=== PATIENT | male | born 1965 | race Caucasian/White ===

== ENCOUNTER → 2020-01-10 08:06 | Outpatient (CLI) | payer BC, OTHER, SELFPAY ==
--- NOTE | 2020-01-10 | DI.US.S_ITS ---
PROCEDURE: US ABDOMEN COMPLETE INDICATIONS: Gastro-esophageal reflux disease TECHNIQUE: Real-time scanning was performed of the abdominal and retroperitoneal organs, with image documentation. COMPARISON: None. FINDINGS: Liver: Liver is diffusely increased in echogenicity. No focal hepatic abnormalities identified. Normal hepatic size. Gallbladder: Cholecystectomy. Biliary ducts: Intrahepatic bile ducts are non-dilated. Extrahepatic bile duct caliber measures 2.5 mm. Normal is 6-7 mm or less in diameter, or 10 mm or less post-cholecystectomy. Pancreas: Not well visualized. Spleen: Spleen is normal in size and homogeneous in echotexture. Kidneys: Kidneys are normal in size and echotexture. Right kidney measures 10.8 cm long; left kidney measures 12.0 cm long. No hydronephrosis or nephrolithiasis. No solid masses. Aorta: Visualized aorta is normal in caliber at less than 3 cm. Iliacs: Proximal common iliac arteries are normal in caliber at less than 2.5 cm. IVC: Intrahepatic inferior vena cava is patent. Miscellaneous: No free abdominal fluid. IMPRESSION: 1. Increased hepatic echogenicity noted possibly related to hepatic steatosis but other sources of hepatocellular disease cannot be excluded. Recommend clinical correlation. Dictated by: Regan GRAY Interpreted: Alena Ghosh MD on 01/10/2020 at 9:27 Approved by: Alena Ghosh M.D. on 01/10/2020 at 11:42
== END ==
PROVIDERS: Family Provider Family Medicine; PCP Family Medicine; Referring Provider Family Medicine; Visit Provider Family Medicine
DX: K21.9 Gastro-esophageal reflux disease without esophagitis (principal)
CPT/HCPCS: 76700

== ENCOUNTER → 2020-02-29 09:15 | Outpatient (CLI) | payer BC, OTHER, SELFPAY ==
[2020-02-29 11:17] LABS: COVID19 -Nasal RAPID Negative (Negative)
== END ==
PROVIDERS: Family Provider Family Medicine; PCP Family Medicine; Visit Provider Surgery
DX: Z01.812 Encounter for preprocedural laboratory examination (principal); Z20.822 Contact with and (suspected) exposure to COVID-19
CPT/HCPCS: 87635; C9803

== ENCOUNTER 2020-03-01 06:55 | Day surgery (SDC) | payer BC, OTHER, SELFPAY ==
[2020-03-01] VITALS (8 sets, daily range): BP systolic 106–126; BP diastolic 72–90; PULSE 71–83; RESP 10–20; TEMP 36.3–37.3; O2SAT 92–97; BMI 29.7
--- NOTE | 2020-03-01 | PATH_ITS ---
[facility] Accession Number: [id number] . 01 Material submitted: . PART A: duodenum - DUODENAL BIOPSIES PART B: gastrointestinal site - STOMACH BIOPSIES PART C: esophagus - ESOPHAGEAL BIOPSIES . 02 Diagnosis: A. Duodenum, Biopsies: Duodenal mucosa with villous blunting, reactive epithelial changes, and gastric surface foveolar metaplasia, most consistent with peptic duodenitis. Negative for intraepithelial lymphocytosis. Negative for dysplasia and malignancy. . B. Stomach, Biopsies: Body-type mucosa with mild chronic gastritis. Negative for Helicobacter organisms by immunohistochemistry. Negative for intestinal metaplasia. Negative for dysplasia and malignancy. . C. Esophagus, Biopsies: Squamous and columnar mucosa with no diagnostic abnormality. Negative for intestinal metaplasia. Negative for dysplasia and malignancy. [facility] 03/07/2020 1510 Local . 02 Electronically signed: . Carey More MD, Pathologist NPI- [id number] . 01 Gross description: . Part A: DUODENAL BIOPSIES: Received in formalin are 2 fragment(s) of bower, soft tissue measuring 0.1 x 0.1 x 0.1 cm to 0.2 x 0.1 x 0.1 cm submitted entirely in 1 cassette(s) Part B: STOMACH BIOPSIES: Received in formalin are multiple fragment(s) of bower, soft tissue measuring 0.1 x 0.1 x 0.1 cm to 0.2 x 0.2 x 0.2 cm submitted entirely in 1 cassette(s) Part C: ESOPHAGEAL BIOPSIES: Received in formalin are 2 fragment(s) of bower, soft tissue measuring 0.1 x 0.1 x 0.1 cm to 0.2 x 0.2 x 0.1 cm submitted entirely in 1 cassette(s) /JESSE 03/04/2020 1909 Local . 02 Microscopic: . B. An immunohistochemical stain was performed to evaluate for Helicobacter organisms and is negative. The control stain showed appropriate reactivity. . * This test was developed and its performance characteristics determined by [facility]. It has not been cleared or approved by the U.S. Food and Drug Administration. The FDA has determined that such clearance or approval is not necessary. This test is used for clinical purposes. It should not be regarded as investigational or for research. . 02 Pathologist provided ICD-10: K62.5 . 02 CPT . 335171, 062516, 879742, [id number] Performed at: 01 [facility] [address] [facility] [place] [place], [place], [place] [id number] MD Lyle Birmingham MD Phone: [phone] Performed at: 02 [facility] [address] [place], [place] [id number] MD Carey More MD Phone: [phone]
[2020-03-01] MEDS: SODIUM CHLORIDE 0.9% 1,000 ML 200 ML IV (07:11)
--- NOTE | 2020-03-01 07:30 | P.HP_ITS ---
History of Present Illness History of Present Illness Date Patient Seen: 03/01/20 Time Patient Seen: 07:31 Chief complaint: SDC Narrative: This is a 54 yo man with history of GERD, colon polyps, and cholecystectomy. He has low-grade obesity with a BMI of 31.8. He came to see me last month with c/o heme positive stool and abdominal pain. He has had an unexplained right sided abdominal pain which seems to come on randomly in the right mid abdomen and flank. It does not seem to be associated with eating, activity, or bowel movements. He denies constipation, diarrhea, BRBPR, rectal pain, or hemorrhoids. He denies nausea, vomiting, fevers, or jaundice. He does have heartburn symptoms at night about once per week. He denies unexplained abdominal pain or unexplained weight loss. He had a colonoscopy about five years ago during which precancerous polyps were removed. He recently had an abdominal ultrasound which showed fatty liver and no other noted abnormalities. The patient reports no interval changes since his visit in January. ROS: Positive for skin lesions. Thirteen system review is otherwise negative other than as mentioned below and in HPI. PE: GENERAL: Well groomed and cooperative. Appears stated age. Answers questions promptly and appropriately. Vital signs noted. HENT: Normocephalic, atraumatic. Hearing intact. EYES: Conjunctiva pink, sclera white, no periorbital swelling. CARDIOVASCULAR: Regular rate. No pedal edema. RESPIRATORY: Non-tachypneic, breathing comfortably on room air. GASTROINTESTINAL: Abdomen soft and non-distended MUSCULOSKELETAL: Equal tone and mass bilaterally. SKIN: Warm, dry, soft, appropriate color for ethnicity. No other lesions, rashes, or wounds. NEURO: Alert and Oriented X 3. No gross sensory deficits, or cognitive issues. PSYCH: Appropriate affect and mood. Patient History Medical History Femur fracture, left Surgical History Hx of cholecystectomy Hx of knee surgery Family & Social History Family History Father Esophageal cancer Sister Breast cancer Grandfather Heart disease Social History: household members spouse,children Tobacco & Substance use: Smoking Status Never smoker alcohol intake current alcohol intake frequency holiday/special occasion Substance Use Type does not use Meds Home Medications and Allergies Home Medications Medication Instructions Recorded Confirmed Type No Known Home Medications 01/23/20 03/01/20 History Allergies Allergy/AdvReac Type Severity Reaction Status Date / Time No Known Drug Allergies Allergy Verified 03/01/20 07:10 Exam Vital Signs (past 8 hours): - 03/01/20 07:11 Temperature 97.4 F L Pulse Rate 74 Respiratory Rate 16 Blood Pressure 126/90 Pulse Oximetry 96 Oxygen Delivery Method Room Air Objective Imaging US - abdomen: Radiologist's impression: PROCEDURE: US ABDOMEN COMPLETE INDICATIONS: Gastro-esophageal reflux disease TECHNIQUE: Real-time scanning was performed of the abdominal and retroperitoneal organs, with image documentation. COMPARISON: None. FINDINGS: Liver: Liver is diffusely increased in echogenicity. No focal hepatic abnormalities identified. Normal hepatic size. Gallbladder: Cholecystectomy. Biliary ducts: Intrahepatic bile ducts are non-dilated. Extrahepatic bile duct caliber measures 2.5 mm. Normal is 6-7 mm or less in diameter, or 10 mm or less post-cholecystectomy. Pancreas: Not well visualized. Spleen: Spleen is normal in size and homogeneous in echotexture. Kidneys: Kidneys are normal in size and echotexture. Right kidney measures 10.8 cm long; left kidney measures 12.0 cm long. No hydronephrosis or nephrolithiasis. No solid masses. Aorta: Visualized aorta is normal in caliber at less than 3 cm. Iliacs: Proximal common iliac arteries are normal in caliber at less than 2.5 cm. IVC: Intrahepatic inferior vena cava is patent. Miscellaneous: No free abdominal fluid. IMPRESSION: 1. Increased hepatic echogenicity noted possibly related to hepatic steatosis but other sources of hepatocellular disease cannot be excluded. Recommend clinical correlation. Dictated by: Regan Guzmán [facility] Interpreted: Alena Ghosh MD on 01/10/2020 at 9:27 Approved by: Alena Ghosh M.D. on 01/10/2020 at 11:42 Assessment & Plan Assessment and plan (1) Heme positive stool: Status: Acute (2) Abdominal pain: Qualifiers: Abdominal location: right upper quadrant Qualified Code(s): R10.11 - Right upper quadrant pain Status: Acute (3) History of colon polyps: Status: Acute (4) GERD (gastroesophageal reflux disease): Qualifiers: Esophagitis presence: esophagitis presence not specified Qualified Code(s): K21.9 - Gastro-esophageal reflux disease without esophagitis Status: Acute Assessment & Plan narrative: 23 minutes were spent reviewing the patient's records and imaging studies, and 12 minutes were spent discussing the patient's history, any recent changes, and today's procedure. Risks and benefits of screening colonoscopy and possible polypectomy, as well as EGD and biopsy were discussed with the patient including risk of bleeding, perforation, need for additional procedures, risks of anesthesia. The patient desires to proceed with the colonoscopy and upper endoscopy procedures. COVID-19 COVID-19 status: Negative Result date/Date tested (Pos, Neg/Pending): 02/29/20 Time Spent With Patient Time with patient: 25 - 35 minutes Quality VTE Deep Vein Thrombosis/Pulmonary Embolism Present on Admission: No
[2020-03-01] MEDS: fentaNYL 250 MCG/5 ML INJ IV (07:37)
[2020-03-01] MEDS: MIDAZOLAM 5 MG/5 ML VIAL IV (07:38)
[2020-03-01] MEDS: LIDOCAINE 4% SOLN 50 ML 20 ML TOP (07:39)
--- NOTE | 2020-03-01 07:39 | PM.OP.ENDO ---
Operative Date/Time/Diagnoses Date of procedure: 03/01/20 Time of procedure: 07:39 Pre-op diagnosis: Heme positive stool, right sided abdominal pain, history of GERD and colon polyps Post-op diagnosis: other (copious bile in the stomach, shallow ulcers induodenal bulb) Procedure & Clinicians Study performed: Colonoscopy Procedural sedation performed by the endoscopist Esophagogastroduodenoscopies Biopsies of duodenum, stomach, distal esophagus Same procedure as scheduled: Yes Indications: Heme-positive stool, right abdominal pain Surgeon: Elizabeth Tolentino Procedure Notes SCOAP/Timeout: Performed Procedure in detail: The patient was brought to the room and placed in left lateral decubitus position with all bony prominences padded. A bite block was positioned in the patient's mouth to protect the lips, teeth, and tongue for the procedure. A time-out was performed and then the patient was given procedural sedation starting with [4] mg of Versed and [100] mcg of fentanyl. Vitals were monitored throughout the procedure and remained stable. Once adequately sedated, the procedure was begun. The lubricated gastroscope was passed through the bite block and across the tongue and into the esophagus without incident. A tubular view of the esophagus was maintained as the scope was advanced through the esophagus and into the stomach. There was copious bilious fluid in the stomach. The there was some mild in discuss gastritis, but no ulcers in the stomach, and the stomach otherwise appeared normal. The scope was advanced through the stomach and to the pylorus. The scope was gently popped through the pylorus and into the duodenal bulb. The scope was flexed and advanced into the second and third portions of the duodenum. There was prominent inflammation in the duodenal bulb, with some shallow nonbleeding ulcers. Biopsies were taken. The scope was withdrawn into the stomach. Biopsies were taken in the gastric antrum and gastric body. The scope was retroflexed and the gastric cardia was examined. The hiatus [appeared normal]. There was no evidence of a hiatal hernia or any ulcerations at the GE junction. The scope was then straightened, and withdrawn into the esophagus. The Z-line [appeared normal]. The distal esophagus [appeared normal]. Biopsies were taken. The scope was then withdrawn through the esophagus with a tubular view. The bite block was then removed, and attention was turned to the colonoscopy portion of the procedure. A rectal exam was performed revealing [no abnormalities]. The colonoscope was then introduced to the rectum and advanced to the cecum in the usual fashion. []The cecum was identified by the appendiceal orifice, the mucosal tri-fold, and the ileocecal valve. The scope was then retracted while rotating side to side and examining each mucosal fold. [] At the conclusion of the procedure retroflexion was performed and [small grade 1-2 internal hemorrhoids without stigmata of bleeding were seen]. No polyps or other abnormalities were seen on the colonoscopy portion of the procedure. The scope was then withdrawn from the rectum the procedure was concluded. The patient tolerated the procedure well and was transferred to the PACU in stable condition. Scope withdrawal time: 8 Sedation minutes: 31 Findings: duodenal ulcer and gastritis Specimen(s): other (Biopsies of duodenum, stomach, distal esophagus) Complications: none Impression: Normal appearing colon. Normal-appearing esophagus, no hiatal hernia, mild gastritis, copious Bilious fluid in the stomach, shallow Ulcers in the duodenal bulb without visible vessels or active bleeding, 2nd portion of the duodenum appeared normal. Likely source of heme-positive stool is the ulceration of the duodenal bulb. No other cause of right side abdominal pain was identified. Post-procedure Recommendations: Other recommendation (Pending biopsy results to rule out H pylori. Patient may need to start on a PPI or be treated for H pylori if biopsies are positive.) Follow up: as needed Disposition: PACU
== END 2020-03-01 09:03 | disposition home or self-care (01) ==
PROVIDERS: Family Provider Family Medicine; PCP Family Medicine; Referring Provider Family Medicine; Visit Provider Surgery
PROC: 0DJD8ZZ Inspection of Lower Intestinal Tract, Via Natural or Artificial Opening Endoscopic (ICD-10-PCS; CPT 45378; 2020-03-01 07:45)
PROC: 0DJ08ZZ Inspection of Upper Intestinal Tract, Via Natural or Artificial Opening Endoscopic (ICD-10-PCS; CPT 43235; 2020-03-01 07:45)
DX: K29.50 Unspecified chronic gastritis without bleeding (principal); K21.9 Gastro-esophageal reflux disease without esophagitis; R19.5 Other fecal abnormalities; Z86.010 Personal history of colon polyps; K26.9 Duodenal ulcer, unspecified as acute or chronic, without hemorrhage or perforation; K64.0 First degree hemorrhoids
CPT/HCPCS: 43239; 45378; 99152; 99153; J2250; J3010

== ENCOUNTER → 2021-02-26 09:33 | Outpatient (CLI) | payer BC, OTHER, SELFPAY ==
[2021-02-26 10:08] LABS: COVID19 -Nasal RAPID Negative (Negative)
== END ==
PROVIDERS: Family Provider Family Medicine; PCP Family Medicine; Visit Provider Surgery
DX: Z01.812 Encounter for preprocedural laboratory examination (principal); Z20.822 Contact with and (suspected) exposure to COVID-19
CPT/HCPCS: 87635; C9803

== ENCOUNTER 2021-02-27 13:32 | Day surgery (SDC) | payer BC, OTHER, SELFPAY ==
--- NOTE | 2021-02-27 | PATH_ITS ---
[facility] Accession Number: [id number] . 01 Material submitted: . duodenum - DUODENAL . 02 Diagnosis: Duodenal: Duodenal mucosa with focal, mild active inflammation, non-specific. Negative for regions of dysplasia or malignancy. Negative for features of sprue. [facility] 03/03/2021 1102 Local . 02 Electronically signed: . Guerda Chu MD, Pathologist NPI- [id number] . 01 Gross description: . DUODENAL: Received in formalin are 2 fragment(s) of bower, soft tissue measuring 0.1 x 0.1 x 0.1 cm to 0.3 x 0.1 x 0.1 cm submitted entirely in 1 cassette(s) /JESSE 02/28/2021 0151 Local . 02 Pathologist provided ICD-10: K26.9 . 02 CPT . 495462 Performed at: 01 [facility] [address] [facility], [place], [place] [id number] MD Lyle Birmingham MD Phone: [phone] Performed at: 02 [facility] [address] [place], [place] [id number] MD Carey More MD Phone: [phone]
[2021-02-27 13:53] VITALS: BP 144/94; PULSE 78; RESP 16; O2SAT 97; BMI 31.4
[2021-02-27] MEDS: LACTATED RINGERS 1,000 ML 200 ML IV (14:03)
--- NOTE | 2021-02-27 14:34 | PM.PREOP ---
Pre-operative Note Interval Note History & Physical reviewed/Exam performed by Physician: Yes Changes to H&P: No
[2021-02-27] MEDS: LIDOCAINE 4% SOLN 50 ML 20 ML TOP (14:40)
[2021-02-27] MEDS: MIDAZOLAM 5 MG/5 ML VIAL IV (14:44)
[2021-02-27] MEDS: fentaNYL 250 MCG/5 ML INJ IV (14:45)
--- NOTE | 2021-02-27 14:57 | PM.OP.EGD ---
Operative Date/Time/Diagnoses Date of procedure: 02/27/21 Time of procedure: 14:57 Pre-op diagnosis: Abdominal pain Post-op diagnosis: same Procedure & Clinicians Study performed: Esophagoduodenoscopy Same procedure as scheduled: Yes Indications: History of duodenal ulcers and reflux with worsening GERD and abdominal pain Surgeon: Desmond Jefferson Procedure Notes Procedure in detail: Patient placed in left lateral decubitus position. Time out was performed. Procedural sedation was administered with Versed and Fentanyl. A bite block was placed. the scope was inserted into the mouth and advanced through the esophagus and into the stomach. The stomach was normal in its appearance. The pylorus was intubated. The duodenal bulb was notable for mild duodenitis was no active bleeding or distinct ulceration. Biopsies of the duodenal bulb were taken with forceps. The scope was retroflexed within the stomach and there was no hiatal hernia. The scope was withdrawn into the esophagus the Z line was seen at 38 cm from the incisions. There was no Matthews's esophagitis or masses or strictures. Stomach was desufflated and scope removed. Patient tolerated procedure well. Specimen(s): other (Duodenum) Complications: none Impression: Duodenitis Post-procedure Plan for aftercare: Will notify with biopsy results. I would recommend starting famotidine daily Disposition: same day surgery
[2021-02-27 15:10] VITALS: BP 120/88; BP 126/89; PULSE 72; PULSE 76; RESP 16; RESP 18; TEMP 36.7; O2SAT 91; O2SAT 94
[2021-02-27 15:20] VITALS: BP 124/88; PULSE 77; RESP 10; O2SAT 96
[2021-02-27 15:33] VITALS: BP 141/95; PULSE 75; RESP 12; O2SAT 96
== END 2021-02-27 15:56 | disposition home or self-care (01) ==
PROVIDERS: Family Provider Family Medicine; PCP Family Medicine; Referring Provider Surgery; Visit Provider Surgery
PROC: 0DJ08ZZ Inspection of Upper Intestinal Tract, Via Natural or Artificial Opening Endoscopic (ICD-10-PCS; CPT 43235; principal; 2021-02-27 14:30)
DX: K29.80 Duodenitis without bleeding (principal); K21.9 Gastro-esophageal reflux disease without esophagitis; Z87.19 Personal history of other diseases of the digestive system
CPT/HCPCS: 43239; J2250; J3010

== ENCOUNTER → 2022-03-17 15:02 | Outpatient (CLI) | payer BC, OTHER, SELFPAY ==
--- NOTE | 2022-03-17 | DI.RAD.S_ITS ---
PROCEDURE: XR KNEE RT 3V INDICATIONS: right knee pain TECHNIQUE: 3 views of the knee were acquired. COMPARISON: CR, KNEE MIN 4VW (RT), 09/29/2011, 13:34. CR, KNEE MIN 4VW (LT), 09/29/2011, 13:34. FINDINGS: Bones: No fractures or dislocations. No suspicious bony lesions. Mild narrowing of the medial femorotibial joints bilaterally. Soft tissues: Small right knee joint effusion. No suspicious soft tissue calcifications. IMPRESSION: Mild narrowing of the medial femorotibial joints bilaterally. Dictated by: Regan Guzmán RR Interpreted: Johnathan Lyons MD on 03/17/2022 at 15:27 Transcribed by: LOWELL on 03/17/2022 at 15:27 Approved by: Johnathan Lyons M.D. on 03/17/2022 at 16:37
== END ==
PROVIDERS: Family Provider Family Medicine; PCP Family Medicine; Referring Provider Family Medicine; Visit Provider Family Medicine
DX: M25.561 Pain in right knee (principal); M25.461 Effusion, right knee
CPT/HCPCS: 73562

== ENCOUNTER → 2022-03-25 15:18 | Outpatient (CLI) | payer BC, OTHER, SELFPAY ==
--- NOTE | 2022-03-25 | DI.US.S_ITS ---
PROCEDURE: US ABDOMEN LIMITED INDICATIONS: Fatty (change of) liver, not elsewhere classified TECHNIQUE: Real-time focused scanning was performed of the abdomen, with image documentation. COMPARISON: [facility], US, US ABDOMEN COMPLETE, 01/10/2020, 8:15. FINDINGS: The liver demonstrates mildly enlarged size. The liver demonstrates generalized moderately increased echogenicity. This decreases ultrasound sensitivity for detection of hepatic masses. Status post cholecystectomy. There is no biliary dilatation, the common bile duct measures 5 mm. The pancreas is partially seen on this study. IMPRESSION: Mildly enlarged, fatty liver. Status post cholecystectomy, without biliary dilatation. Dictated by: David Kelly M.D. on 03/25/2022 at 15:14 Approved by: David Kelly M.D. on 03/25/2022 at 15:15
== END ==
PROVIDERS: Family Provider Family Medicine; PCP Family Medicine; Referring Provider Family Medicine; Visit Provider Family Medicine
DX: K76.0 Fatty (change of) liver, not elsewhere classified (principal); Z90.49 Acquired absence of other specified parts of digestive tract
CPT/HCPCS: 76705

== ENCOUNTER → 2024-12-21 07:11 | Outpatient (CLI) | payer BC, OTHER, SELFPAY ==
--- NOTE | 2024-12-21 07:13 | DI.US.S_ITS ---
PROCEDURE: US RENAL COMPLETE INDICATIONS: stage 3a chronic kidney disease TECHNIQUE: Real-time scanning was performed of the kidneys and bladder, with image documentation. COMPARISON: None. FINDINGS: Kidneys: Kidneys are normal in size. Right kidney measures 12.0 cm long; left kidney measures 11.4 cm long. Right renal cortical thickness is 1.8 cm; left renal cortical thickness is 1.6 cm. Renal cortical echotexture is normal. No hydronephrosis or nephrolithiasis. No suspicious solid mass lesions. Adjacent liver appears increased in echotexture consistent with fatty infiltration. Bladder: Pre-void bladder volume is 399 mL. Post-void residual is 106 mL. Pre-void images demonstrate no intraluminal masses or stones. On pre-void images, bilateral ureteral jets are noted with color Doppler interrogation. (Of note, ureteral jets may not be detectable in up to 25% of cases due to insufficient differences in specific gravity between ureteral and bladder urine). Miscellaneous: No free pelvic fluid. IMPRESSION: Normal renal size, bilaterally. No hydronephrosis or nephrolithiasis. Incidental note is made of increased echotexture in the adjacent liver, relatively prominent when compared to normal echotexture of the right kidney. No ascites or hepatic mass seen in the limited visualization through this area. Significant postvoid residual of 106 cc within the bladder lumen. Dictated by: Felice العراقي M.D. on 12/21/2024 at 9:26 Approved by: Felice العراقي M.D. on 12/21/2024 at 9:29
== END ==
LOC: US 07:12
PROVIDERS: Family Provider Family Medicine; PCP Family Medicine; Referring Provider Family Medicine; Visit Provider Family Medicine
DX: N18.31 Chronic kidney disease, stage 3a (principal)
CPT/HCPCS: 76770

== ENCOUNTER → 2025-02-16 08:33 | Outpatient (CLI) | payer BC, OTHER, SELFPAY ==
--- NOTE | 2025-02-16 08:34 | DI.US.S_ITS ---
PROCEDURE: US ABDOMEN LIMITED INDICATIONS: fatty liver TECHNIQUE: Real-time focused scanning was performed of the abdomen, with image documentation. COMPARISON: [facility], US, US ABDOMEN LIMITED, 03/25/2022, 15:27. FINDINGS: Liver measures 17 cm. Moderately dense liver. No focal lesion identified. Gallbladder is absent. CBD measures 6 mm within normal limits. Partially seen pancreas is unremarkable. IMPRESSION: Dense appearance of the liver on ultrasound, nonspecific, most commonly steatosis. Dictated by: Jaxon Michael M.D. on 02/16/2025 at 10:31 Approved by: Jaxon Michael M.D. on 02/16/2025 at 10:32
== END ==
LOC: US 08:33
PROVIDERS: Family Provider Family Medicine; PCP Family Medicine; Referring Provider Family Medicine; Visit Provider Family Medicine
DX: K76.0 Fatty (change of) liver, not elsewhere classified (principal); Z90.49 Acquired absence of other specified parts of digestive tract
CPT/HCPCS: 76705